=== PATIENT | female | born 1955 | race Caucasian/White ===

== ENCOUNTER → 2016-12-10 | Outpatient (CLI) | payer OTHER | LOC: FIMAGING 13:32 | PROVIDERS: ATTEND Obstetrics & Gynecology Gynecology | DX: Z12.31 Encounter for screening mammogram for malignant neoplasm of breast (principal) | CPT/HCPCS: G0202 ==

== ENCOUNTER 2017-07-04 06:36 | Day surgery (SDC) | payer OTHER ==
[2017-07-04] MEDS ORDERED: LIDOCAINE 1% 2 ML INJ ID PRN (07:06)
[2017-07-04] MEDS ORDERED: LR 1,000 ML IV ONE (07:06)
--- NOTE | 2017-07-04 07:45 | PDANEPAE ---
ANE History of Present Illness 62 yo female with DUB/uterine polyps for hysteroscopy and polypectomy. ANE Past Medical History - Cardiovascular History Hx Hypertension: No Hx Arrhythmias: No Hx Chest Pain: No Hx Coronary Artery / Peripheral Vascular Disease: No Hx CHF / Valvular Disease: No Hx Palpitations: No Cardiovascular History Comment: control induced HTN,resolved since being off of control; pt with occ elevated BP now. Pt might have had some MVP during , now no issues. 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, however recent lab work shows no Hep C infection - Neurological & Psychiatric Hx Hx Neurological and Psychiatric Disorders: No - Cancer History Hx Cancer: No - Congenital Disorder History Hx Congenital Disorders: No - GI History Hx Gastrointestinal Disorders: No - Other Health History Other Health History: NONE - Chronic Pain History Chronic Pain: No - Surgical History Prior Surgeries: none ANE Review of Systems Review of Systems: - Exercise capacity METS (RN): 4 METS - Systems Constitutional: Reports: no symptoms EENMT: Reports: no symptoms Respiratory: Reports: cough (allergy-related) ANE Patient History - Allergies Allergies/Adverse Reactions: Penicillins Allergy (Mild, Verified 06/18/17 15:20) Rash - Home Medications Home Medications: Hormone Replacement 06/18/17 [Last Taken 06/27/17] - Anes Hx Anes Hx: no prior problems - Smoking Hx Smoking Status: Never smoked - Alcohol Use Alcohol Use: Rarely - Family Anes Hx Family Anes Hx: neg - N/A Family Hx Anesthesia Complications: none ANE Labs/Vital Signs - Vital Signs Blood Pressure: 113/61 Heart Rate: 95 Respiratory Rate: 18 O2 Sat (%): 93 Height: 167.64 cm Weight: 70.307 kg ANE Physical Exam - Airway Neck exam: FROM Mallampati Score: Class 2 Mouth exam: normal dental/mouth exam - Pulmonary Pulmonary: clear to auscultation - Cardiovascular Cardiovascular: regular rate and rhythym - ASA Status ASA Status: II ANE Anesthesia Plan Anesthesia Plan: GA with mask Total IV Anesthesia: Yes
[2017-07-04] MEDS ORDERED: DEXAMETHASONE 4 MG/ML VIAL ONE (08:09)
[2017-07-04] MEDS ORDERED: fentaNYL 100 MCG/2 ML INJ ONE (08:09)
[2017-07-04] MEDS ORDERED: PROPOFOL/EMULSION 500 MG/50 ML BOTTLE IV ONE (08:09)
[2017-07-04] MEDS ORDERED: LIDOCAINE 2% 5 ML SDV ONE (08:09)
--- NOTE | 2017-07-04 08:12 | PDHPUP ---
History & Physical Update H&P update statement: This history and physical update is based on an assessment of the patient which was completed after admission or registration (within 24 hours), but prior to the surgery/procedure. H&P update: H&P reviewed & patient examined, no change in patient's condition since H&P completed
[2017-07-04] MEDS ORDERED: PROPOFOL 200 MG/20 ML VIAL ONE ×2 (08:44)
[2017-07-04] MEDS: LIDO/EPI 2%** Not for Epidural 20 ML MDV ONE ×2 (08:46→09:00)
[2017-07-04] MEDS ORDERED: KETOROLAC 30 MG/1 ML SDV ONE (08:46)
[2017-07-04] MEDS ORDERED: HYDROCODONE/APAP 5/325 TAB PO PRN (09:04)
[2017-07-04] MEDS ORDERED: ALBUTEROL 3 ML DEYVIAL IH PRN (09:04)
[2017-07-04] MEDS ORDERED: NALOXONE HCL 0.4 MG/ML INJ IVP PRN (09:04)
[2017-07-04] MEDS ORDERED: ONDANSETRON 4 MG/2 ML VIAL IVP PRN (09:04)
[2017-07-04] MEDS ORDERED: fentaNYL 100 MCG/2 ML INJ IVP PRN (09:04)
--- NOTE | 2017-07-04 09:07 | POSTANESTH ---
Post Anesthetic Evaluation Cardiovascular Status: Normal, Stable Respiratory Status: Normal, Stable Level of Consciousness/Mental Status: Can Participate in Eval, Mildly Sleepy, Arousable Pain Control: Adequate, Prn Tx Ordered Nausea/Vomiting Control: Adequate, Prn Tx Ordered Complications Possibly Related to Anesthesia: None Noted
--- NOTE | 2017-07-04 09:16 | POSTOPPROG ---
Post Op Note Date of Operation: 07/04/17 Surgeon: Reshma Briggs Anesthesiologist: Dr. Carrillo Anesthesia: LMA Pre-op Diagnosis: PMB , thick endometrium Post-op Diagnosis: uterine polyps Indication: PMB Procedure: H/s polypectomy Findings: polyps Inf/Abcess present in the surg proc area at time of surgery?: No EBL: Minimal
[2017-07-04 10:25] VITALS: BP 156/95
--- NOTE | 2017-07-04 17:24 | GOP ---
[f rep st] OPERATIVE REPORT DATE OF OPERATION: 07/04/2017 SURGEON: Reshma rBiggs MD ANESTHESIA: Christy Miller MD. General with LMA. PREOPERATIVE DIAGNOSIS: 1. Postmenopausal bleeding. 2. Thickened endometrial stripe. POSTOPERATIVE DIAGNOSIS: 1. Postmenopausal bleeding. 2. Thickened endometrial stripe. 3. Likely polyps. PROCEDURE PERFORMED: Hysteroscopic polypectomy. FINDINGS: There were several sidewall thickenings that did appear to be polyps on the right side and one area on the posterior fundal area that also appeared to be polyp-like tissue. Normal tubal osti a. ESTIMATED BLOOD LOSS: Minimal. INDICATIONS: The patient is a 62-year-old who has had intermittent postmenopausal bleeding and has h ad 2 Vabra biopsies in the past that showed disrupted polyp. She just had another ultrasound for erica luation and endometrial stripe was noted to be thickened at about 1.2 cm. Recommend hysteroscopic re section of this tissue for further diagnosis and also treatment of her postmenopausal bleeding. DESCRIPTION OF PROCEDURE: With informed consent signed, patient was taken to the operating room, [facility] under general anesthesia, placed in the low dorsal lithotomy position, prepped and draped in the usual sterile fashion. Tenaculum placed on the entry of the cervix. Cervix dilated to 6 mm. Hyster oscope placed using normal saline as a filling medium and findings as noted above. The [employer] morcellator was placed into the hysteroscope, and resection of all of the tissue done un til the entire endometrium was clear of any tissue. Hemostasis was noted. At this point, the hyster oscope removed. Net fluid deficit was 40 cc. Patient placed in supine position, awakened in the ope rating room, taken to recovery room in stable condition. Tolerated procedure well. COMPLICATIONS: None. /[id number]/MODL
== END 2017-07-04 10:30 | disposition home or self-care (01) ==
LOC: FSGY 06:36
PROVIDERS: ATTEND Obstetrics & Gynecology Gynecology
PROC: 0UDB8ZX Extraction of Endometrium, Via Natural or Artificial Opening Endoscopic, Diagnostic (ICD-10-PCS; principal; 2017-07-04 08:00)
DX: N84.0 Polyp of corpus uteri (principal); N95.0 Postmenopausal bleeding; Z88.0 Allergy status to penicillin
CPT/HCPCS: 58555; C1782; J1100; J1885; J2704; J3010

== ENCOUNTER → 2018-03-25 | Outpatient (CLI) | payer OTHER | LOC: FIMAGING 10:18 | PROVIDERS: ATTEND Obstetrics & Gynecology Gynecology | DX: Z12.31 Encounter for screening mammogram for malignant neoplasm of breast (principal); Z80.3 Family history of malignant neoplasm of breast ==